=== PATIENT | female | born 1995 ===

== ENCOUNTER 2018-03-08 18:24 | Emergency (ER) | payer OTHER ==
[2018-03-08 18:32] VITALS: RESP 16
--- NOTE | 2018-03-08 18:51 | ED PDOC ---
HPI: General Adult Time Seen by Provider: 03/08/18 18:44 Chief Complaint (Nursing): Fever Chief Complaint (Provider): Body Aches, Fever, Headache History Per: Patient History/Exam Limitations: no limitations Onset/Duration Of Symptoms: Days (x1) Current Symptoms Are (Timing): Still Present Additional Complaint(s): 22 year old female presents to the ED for evaluation of a fever tmax 101.2 associated with body aches since yesterday morning. Patient states that yesterday she also had a headache associated with nausea, consistent with previous migraines, but was resolved with one dose Excedrin. She denies taking any other medications since. Otherwise, (-) sick contacts, (-) recent travel, (- ) vomiting, (-) diarrhea, (-) chest pain, (-) cough, (-) shortness of breath, (- ) abdominal pain, (-) ear pain, (-) throat pain, (-) urinary symptoms. At this time, patient has no physical complaints besides body aches. LNMP: cannot recall PMD: Bre Krause Past Medical History Reviewed: Historical Data, Nursing Documentation, Vital Signs Vital Signs: Last Vital Signs Temp 98.1 F 03/08/18 21:11 Pulse 81 03/08/18 21:11 Resp 16 03/08/18 21:11 BP 123/77 03/08/18 21:11 Pulse Ox 99 03/09/18 18:54 - Medical History PMH: Anemia, Asthma, Migraine Other PMH: PCOS - Surgical History Other surgeries: wisdom tooth extraction - Family History Family History: States: Unknown Family Hx - Living Arrangements Living Arrangements: With Family - Social History Current smoker - smoking cessation education provided: No Alcohol: None Drugs: Denies - Home Medications Home Medications: Ambulatory Orders Medication Instructions Recorded Acetaminophen [Acetaminophen 8 650 mg PO Q8 #21 tablet.er 03/08/18 Hour] Ibuprofen [Motrin Tab] 600 mg PO Q6 #28 tab 03/08/18 - Allergies Allergies/Adverse Reactions: Allergies Allergy/AdvReac Type Severity Reaction Status Date / Time shellfish derived Allergy ITCHING Verified 03/08/18 18:34 Review of Systems ROS Statement: Except As Marked, All Systems Reviewed And Found Negative Constitutional: Positive for: Fever (tmax 101.2), Other (body aches) ENT: Negative for: Ear Pain, Throat Pain Cardiovascular: Negative for: Chest Pain Respiratory: Negative for: Cough, Shortness of Breath Gastrointestinal: Positive for: Nausea (now resolved). Negative for: Vomiting, Diarrhea Genitourinary Female: Negative for: Dysuria, Frequency, Incontinence Neurological: Positive for: Headache (now resolved) Physical Exam - Reviewed Nursing Documentation Reviewed: Yes Vital Signs Reviewed: Yes - Physical Exam Comments: GENERAL APPEARANCE: Patient is awake, alert, oriented x 3, in no acute distress. Resting comfortably. SKIN: Warm, dry; (-) cyanosis. EYES: (-) conjunctival pallor. Pupils equal and reactive. ENMT: Mucous membranes moist. Airway patent: (-) stridor. Pharynx: Uvula midline (-) swelling, (+) faint erythema, (-) exudate. TMs: (-) bulging, (-) erythema. Nares patent, (-) rhinorrhea. (-) sinus tenderness NECK: Supple, FROM (-) tenderness, (-) stiffness, (-) lymphadenopathy. CHEST AND RESPIRATORY: (-) rhonchi, (-) rales, (-) wheezes; breath sounds equal bilaterally. Respirations even and nonlabored. HEART AND CARDIOVASCULAR: (-) irregularity; (-) murmur ABDOMEN AND GI: Soft; (-) tenderness (-) guarding (-) distention (-) CVA tenderness. EXTREMITIES: (-) deformity; (-) edema. NEURO AND PSYCH: Mental status as above. Cranial nerves grossly intact; strength symmetric. Gait steady, speech clear. (-) facial asymmetry. Cerebellar tests intact. EOMI and painless. - Laboratory Results Result Diagrams: 03/08/18 19:43 03/08/18 19:43 Urine POC: Negative - ECG O2 Sat by Pulse Oximetry: 99 (RA) Pulse Ox Interpretation: Normal Medical Decision Making Medical Decision Making: Time: 1852 Initial Impression: body aches, likely viral illness Initial Plan: --CMP --Urine preg --CBC with differential --Normal saline IV --Toradol 30 mg IVP --Tylenol 650 mg PO --Throat culture --Urine culture --Rapid strep --Urinalysis 1999 Upreg: Negative 2034 Rapid Strep: Negative CBC consistent with anemia, otherwise WNL. No elevation of WBCs. CMP grossly unremarkable. Urinalysis with no evidence of UTI. Patient remained afebrile throughout ED visit. On re-evaluation, patient reports improvement of symptoms On exam, patient remains AAOx3, in no acute distress. On exam, neck is supple, lungs CTA, cardiac RRR, abdomen is soft and non-tender, neuro exam shows no focal findings. VSS, stable for discharge. Diagnostic results d/w the patient in great detail. Dx of bodyaches, viral syndrome d/w the patient. Based on history, exam and diagnostic results plan will be for discharge and outpatient follow up. Advised to follow up with primary care physician in 1-2 days without fail. Advised to take medication as prescribed. Return to the emergency room at any time for any new or worsening symptoms. Patient states she fully agrees with and understands discharge instructions. States that she agrees with the plan and disposition. Verbalized and repeated discharge instructions and plan. I have given the patient opportunity to ask any additional questions. Scribe Attestation: Documented by Shilpa Rice, acting as a scribe for Tita Dyer PA-C. Provider Scribe Attestation: All medical record entries made by the Scribe were at my direction and personally dictated by me. I have reviewed the chart and agree that the record accurately reflects my personal performance of the history, physical exam, medical decision making, and the department course for this patient. I have also personally directed, reviewed, and agree with the discharge instructions and disposition. Disposition - Clinical Impression Clinical Impression: Generalized body aches, Viral syndrome, Anemia - Patient ED Disposition Is Patient to be Admitted: No Counseled Patient/Family Regarding: Studies Performed, Diagnosis, Need For Followup, Rx Given - Disposition Referrals: Bre Krause MD [Family Provider] - Disposition: Routine/Home Disposition Time: 20:39 Condition: IMPROVED Additional Instructions: FOLLOW UP WITH PMD IN 1-2 DAYS WITHOUT FAIL. RETURN TO ED WITH ANY NEW OR WORSENING SYMPTOMS. Prescriptions: Acetaminophen [Acetaminophen 8 Hour] 650 mg PO Q8 #21 tablet.er Ibuprofen [Motrin Tab] 600 mg PO Q6 #28 tab Instructions: Muscle and Bone Pain (DC) Forms: [employer] (Occitan) Print Language: LAO - POA Present On Arrival: None Results - Lab Results Lab Results: 03/08/18 03/08/18 03/08/18 19:43 19:43 19:43 WBC RBC Hgb Hct MCV MCH MCHC RDW Plt Count MPV Neut % (Auto) Lymph % (Auto) [place] % (Auto) Eos % (Auto) Baso % (Auto) Neut # (Auto) Lymph # (Auto) [place] # (Auto) Eos # (Auto) Baso # (Auto) Sodium 138 Potassium 3.7 Chloride 103 Carbon Dioxide 25 Anion Gap 14 BUN 11 Creatinine 0.9 Est GFR ( Amer) > 60 Est GFR (Non-Af Amer) > 60 Random Glucose 82 Calcium 8.6 Total Bilirubin 0.5 AST 40 H ALT 22 Alkaline Phosphatase 45 Total Protein 7.4 Albumin 4.2 Globulin 3.2 Albumin/Globulin Ratio 1.3 Urine Color Yellow Urine Clarity Slighty-cloudy Urine pH 6.0 Ur Specific [place] 1.027 Urine Protein 30 Urine Glucose (UA) Neg Urine Ketones Negative Urine Blood Small Urine Nitrate Negative Urine Bilirubin Negative Urine Urobilinogen 4.0 H Ur Leukocyte Esterase Neg Urine RBC (Auto) 15 H Urine Microscopic WBC 3 Ur Squamous Epith Cells 2 Urine Bacteria Occ H Grp A Beta Strep Ag Negative 03/08/18 19:43 WBC 6.6 RBC 5.30 H Hgb 11.1 L Hct 34.8 MCV 65.7 L MCH 21.0 L MCHC 32.0 L RDW 15.2 H Plt Count 328 MPV 8.7 Neut % (Auto) 67.5 Lymph % (Auto) 18.8 L [place] % (Auto) 12.9 H Eos % (Auto) 0.4 Baso % (Auto) 0.4 Neut # (Auto) 4.4 Lymph # (Auto) 1.2 [place] # (Auto) 0.8 Eos # (Auto) 0.0 Baso # (Auto) 0.0 Sodium Potassium Chloride Carbon Dioxide Anion Gap BUN Creatinine Est GFR ( Amer) Est GFR (Non-Af Amer) Random Glucose Calcium Total Bilirubin AST ALT Alkaline Phosphatase Total Protein Albumin Globulin Albumin/Globulin Ratio Urine Color Urine Clarity Urine pH Ur Specific [place] Urine Protein Urine Glucose (UA) Urine Ketones Urine Blood Urine Nitrate Urine Bilirubin Urine Urobilinogen Ur Leukocyte Esterase Urine RBC (Auto) Urine Microscopic WBC Ur Squamous Epith Cells Urine Bacteria Grp A Beta Strep Ag
[2018-03-08] MEDS ORDERED: Sodium Chloride 0.9% 1,000 ML IV SCH (19:00)
[2018-03-08 19:57] LABS: BASO % 0.4 % (0.0-2.0); EOS % 0.4 % (0.0-4.0); HEMOGLOBIN 11.1 g/dL (12.0-16.0); LYMPH # 1.2 K/uL (1.0-4.3); LYMPH % 18.8 % (20.0-40.0); MEAN CELL VOLUME 65.7 fl (81.0-99.0); MEAN PLATELET VOLUME 8.7 fl (7.2-11.7); MONO # 0.8 K/uL (0.0-0.8); MONO % 12.9 % (0.0-10.0); NEUT # 4.4 K/uL (1.8-7.0); NEUT % 67.5 % (50.0-75.0); NRBC % 0.1 % (0.0-0.0); RBC 5.3 Mil/uL (3.80-5.20); RED CELL DISTRIBUTION WIDTH 15.2 % (11.5-14.5); WHITE BLOOD COUNT 6.6 K/uL (4.8-10.8)
[2018-03-08 20:00] LABS: ALB/GLOB RATIO 1.3 (1.0-2.1); ALBUMIN 4.2 g/dL (3.5-5.0); CALCIUM 8.6 mg/dL (8.4-10.2); GFR AFRICAN-AMERICAN > 60; GFR NON-AFRICAN AMERICAN > 60
[2018-03-08 20:02] LABS: SQUAMOUS EPITHIAL 2 /hpf (0-5); URINE BACTERIA OCC (<OCC); URINE BILIRUBIN NEGATIVE (NEGATIVE); URINE BLOOD SMALL (NEGATIVE); URINE CLARITY SLIGHTY-CLOUDY (Clear); URINE COLOR YELLOW (YELLOW); URINE GLUCOSE (UA) NEG (Normal); URINE LEUKOCYTE ESTERASE NEG Leu/uL (Negative); URINE PROTEIN 30 mg/dL (NEGATIVE)
[2018-03-08 20:05] LABS: ALT/SGPT 22 U/L (9-52); AST/SGOT 40 U/L (14-36); BLOOD UREA NITROGEN 11 mg/dl (7-17)
[2018-03-08 21:12] VITALS: BP 123/77; PULSE 81; TEMP 98.1
[2018-03-09 18:53] VITALS: O2SAT 99
== END 2018-03-08 21:12 | disposition home or self-care (01) ==
LOC: H.ER 18:24
DX: B34.9 Viral infection, unspecified (principal); D64.9 Anemia, unspecified; M79.1 Myalgia; E28.2 Polycystic ovarian syndrome
CPT/HCPCS: 80053; 81003; 81025; 85025; 87070; 87086; 87430; 96374; 99284; J1885; J7030

== ENCOUNTER 2018-05-07 10:44 | Emergency (ER) | payer OTHER ==
[2018-05-07 10:48] VITALS: BMI 25.8
[2018-05-07 10:50] VITALS: BP 105/70; PULSE 72; RESP 17; TEMP 98.4; O2SAT 99
--- NOTE | 2018-05-07 11:10 | ED PDOC ---
HPI: Back Time Seen by Provider: 05/07/18 10:54 History Per: Patient Onset/Duration Of Symptoms: Days (10) Current Symptoms Are (Timing): Intermittent Episodes Quality Of Discomfort: Aching Severity: Mild Previous Symptoms: Back Pain Associated Symptoms: None Exacerbating Factor(s): Movement Additional Complaint(s): Low back painx 10 days. No injury or heavy lifting. Seen PMC with xray lumbar spine neg, no weakness or parsthesias. No urinary sxs.. Non radiating. Transient improvement with Motrin. Past Medical History Vital Signs: Last Vital Signs Temp 98.4 F 05/07/18 10:48 Pulse 72 05/07/18 10:48 Resp 17 05/07/18 10:48 BP 105/70 05/07/18 10:48 Pulse Ox 99 05/07/18 10:48 - Medical History PMH: Anemia, Asthma, Migraine - Family History Family History: States: Unknown Family Hx - Home Medications Home Medications: Ambulatory Orders Medication Instructions Recorded Acetaminophen [Acetaminophen 8 650 mg PO Q8 #21 tablet.er 03/08/18 Hour] Ibuprofen [Motrin Tab] 600 mg PO Q6 #28 tab 03/08/18 Ibuprofen [Motrin Tab] 800 mg PO Q8 #15 tab 05/07/18 traMADol [Ultram] 50 mg PO Q8 #10 tab 05/07/18 - Allergies Allergies/Adverse Reactions: Allergies Allergy/AdvReac Type Severity Reaction Status Date / Time shellfish derived Allergy ITCHING Verified 03/08/18 18:34 Review of Systems Constitutional: Negative for: Fever Genitourinary Female: Negative for: Dysuria, Frequency Musculoskeletal: Positive for: Back Pain Neurological: Negative for: Weakness, Numbness Physical Exam - Physical Exam Appears: Positive for: Non-toxic, No Acute Distress Skin: Positive for: Normal Color, Warm, DRY Gastrointestinal/Abdominal: Positive for: Bowel Sounds, Soft. Negative for: Tenderness Back: Positive for: Normal Inspection. Negative for: Vertebral Tenderness Extremity: Positive for: Normal ROM Neurologic/Psych: Positive for: Alert, Oriented. Negative for: Motor/Sensory Deficits - ECG O2 Sat by Pulse Oximetry: 99 Disposition - Clinical Impression Clinical Impression: Back pain - Patient ED Disposition Is Patient to be Admitted: No Counseled Patient/Family Regarding: Diagnosis, Need For Followup, Rx Given - Disposition Referrals: Татьяна Garrett MD [Staff Provider] - Disposition: Routine/Home Disposition Time: 11:12 Condition: FAIR Prescriptions: Ibuprofen [Motrin Tab] 800 mg PO Q8 #15 tab traMADol [Ultram] 50 mg PO Q8 #10 tab Instructions: Low Back Pain (DC)
== END 2018-05-07 12:25 | disposition home or self-care (01) ==
LOC: H.ER 10:44
DX: M54.9 Dorsalgia, unspecified (principal)